=== PATIENT | male | born 1955 | race Caucasian/White ===

== ENCOUNTER 2016-12-23 13:46 | Emergency (ER) | payer BC, MEDICARE ==
[~2016-12-23] VITALS: Ht 182.9 cm; Wt 90.7 kg
[~2016-12-23 13:46] MED LIST: AMLO10TA2 PO; AMOX500C2 PO; ASPI-983 PO; ATEN100T PO; ATOR10TA66 PO; CITA20TA7 PO; DOXY100T2 PO; FLUT50DI IH; GABA-488 PO; INSU100I14 SQ; INSU100I23 SQ; INSU100V5 SQ; LISI40TA PO; METF1000 PO; PRD20T PO; RANI150T11 PO; RT-ALBUINH IH
--- NOTE | 2016-12-23 15:04 | Diagnostic Imaging Report ---
PA and lateral views of the chest. INDICATION: Cough. FINDINGS: There is mild prominence of the interstitial markings. Minimal atelectasis in the right lung base is also seen. There is no effusion or pneumothorax. The heart size is normal. The mediastinum and tommy appear unremarkable. IMPRESSION: There is prominence of interstitial markings which could relate to minimal vascular congestion. A viral or atypical infection could be considered. Dictated by: Dictated on workstation # [id number]
[2016-12-23 15:08] LABS: BASOPHILS # (AUTO) 0.1 10^3/uL (0.0-0.1); BASOPHILS % (AUTO) 2 % (0-10); EOSINOPHILS # (AUTO) 0.4 10^3/uL (0.0-0.3); EOSINOPHILS % (AUTO) 6 % (0-10); LYMPHOCYTES # (AUTO) 0.8 X 10^3 (1.0-4.0); LYMPHOCYTES % (AUTO) 14 % (12-44); MEAN CORPUSCULAR HEMOGLOBIN 30 PG (25-34); MEAN CORPUSCULAR HGB CONC 33 G/DL (32-36); MEAN CORPUSCULAR VOLUME 91 FL (80-99); MEAN PLATELET VOLUME 10.5 FL (7.4-10.4); MONOCYTES # (AUTO) 0.7 X 10^3 (0.0-1.0); MONOCYTES % (AUTO) 12 % (0-12); NEUTROPHILS # (AUTO) 3.8 X 10^3 (1.8-7.8); NEUTROPHILS % (AUTO) 66 % (42-75); PLATELET COUNT 214 10^3/uL (130-400); RED BLOOD COUNT 4.63 10^6/uL (4.35-5.85); RED CELL DISTRIBUTION WIDTH 13.8 % (10.0-14.5); WHITE BLOOD COUNT 5.7 10^3/uL (4.3-11.0)
[2016-12-23 15:18] LABS: INR 0.9 (0.8-1.4); PROTHROMBIN TIME PATIENT 11.8 SEC (12.2-14.7)
[2016-12-23 15:29] LABS: ALANINE AMINOTRANSFERASE 12 U/L (0-55); ALBUMIN 4.6 G/DL (3.2-4.5); ANION GAP 11 MMOL/L (5-14); ASPARTATE AMINO TRANSFERASE 16 U/L (5-34); BILIRUBIN,TOTAL 0.5 MG/DL (0.1-1.0); BLOOD UREA NITROGEN 27 MG/DL (7-18); BUN/CREATININE RATIO 18; CALCIUM 9.8 MG/DL (8.5-10.1); CARBON DIOXIDE 26 MMOL/L (21-32); CHLORIDE 101 MMOL/L (98-107); CREATININE SERUM 1.49 MG/DL (0.60-1.30); GFR ESTIMATED 48; GLUCOSE 147 MG/DL (70-105); MAGNESIUM 1.8 MG/DL (1.8-2.4); POTASSIUM 4.9 MMOL/L (3.6-5.0); SODIUM 138 MMOL/L (135-145); TOTAL PROTEIN 7.1 G/DL (6.4-8.2)
[2016-12-23 15:30] LABS: ALCOHOL < 10 MG/DL (<10)
--- NOTE | 2016-12-23 15:49 | ED General ---
General Chief Complaint: Cough/Cold/Flu Symptoms Stated Complaint: FEVER, SORE THROAT Nursing Triage Note: c/o hoarse voice, occasional cough, and exertional SOA. Reports having to sleep in upright position at night. Hx of right sided CVA 2012 Nursing Sepsis Screen: No Definite Risk Source of Information: Patient, Old Records Exam Limitations: No Limitations History of Present Illness Time Seen by Provider: 14:07 Initial Comments This 61-year-old gentleman presents to emergency room with complaints of sore throat and difficulty breathing, especially at night. He was started on Lasix in November for pulmonary edema. He reports having fever recently but none today. He does have cough. He had similar problems about a year ago for which she was admitted and had a thorough workup including swallow study and CT scans. He reports a history of frequent alcohol use until about one month ago. He does not drink every day. He does have a history of congestive heart failure, neuropathy, stroke with right-sided weakness, and insulin-dependent diabetes. His primary care providers Dr. Estrada in [place]. Allergies and Home Medications Allergies Coded Allergies: benzocaine (Verified Allergy, Severe, 11/26/15) Sulfa (Sulfonamide Antibiotics) (Verified Allergy, Unknown, 11/25/15) Home Medications Albuterol Sulfate 18 Gm Hfa.aer.ad #1 2 PUFF IH Q4H PRN PRN SHORTNESS OF BREATH Prescribed by: CAIN MAYER on 11/28/15 0613 Albuterol Sulfate 6.7 Gm Hfa.aer.ad #1 1-4 PUFF IH Q4H PRN PRN SHORTNESS OF BREATH Prescribed by: WILLIAM MCKINNEY on 12/23/16 1731 Amlodipine Besylate 10 Mg Tablet 10 MG PO DAILY (Reported) Aspirin 81 Mg Tablet.dr 81 MG PO DAILY (Reported) Atenolol 100 Mg Tablet 100 MG PO DAILY (Reported) Atorvastatin Calcium 10 Mg Tablet 10 MG PO HS (Reported) Citalopram Hydrobromide 20 Mg Tablet 20 MG PO DAILY (Reported) Doxycycline Hyclate 100 Mg Tablet #20 100 MG PO BID Prescribed by: CHEMO AGUIRRE on 12/02/15 1107 Fluticasone Propionate 1 Disk Inhp #1 2 DISK IH BID Prescribed by: CAIN MAYER on 11/28/15 0612 Furosemide 20 Mg Tablet #30 20 MG PO BID Take one at breakfast time and one after lunch Prescribed by: WILLIAM MCKINNEY on 12/23/161716 Gabapentin 300 Mg Capsule 300 MG PO TID (Reported) Insulin Aspart 300 Units/3 Ml Solution 8-12 UNITS SQ TID (Reported) WITH MEALS / HAS NOT BEEN USING Insulin Determir 1,000 Units/10 Ml Soln #1 25 UNIT SQ DAILY@0900 Prescribed by: CHEMO AGUIRRE on 12/02/15 105 Insulin Determir 1,000 Units/10 Ml Soln #1 50 UNIT SQ HS Prescribed by: CHEMO AGUIRRE on 12/02/15 1057 Insulin Lispro 100 Unit/1 Ml Insuln.pen #1 17 UNIT SQ AC Prescribed by: CHEMO AGUIRRE on 12/02/15 105 Lisinopril 40 Mg Tablet 40 MG PO DAILY (Reported) Metformin HCl 1,000 Mg Tablet 1,000 MG PO BID (Reported) Potassium Chloride 10 Meq Capsule.er #14 10 MEQ PO DAILY Prescribed by: WILLIAM MCKINNEY on 12/23/161716 Prednisone 20 Mg Tab #20 20 MG PO UD Prescribed by: CHEMO AGUIRRE on 12/02/15 1107 Ranitidine HCl 150 Mg Tablet 150 MG PO BID (Reported) Constitutional: no symptoms reported EENTM: see HPI Respiratory: see HPI Cardiovascular: no symptoms reported Gastrointestinal: no symptoms reported Genitourinary: no symptoms reported Musculoskeletal: no symptoms reported Skin: no symptoms reported Psychiatric/Neurological: See HPI Hematologic/Lymphatic: No Symptoms Reported Past Kccgtfv-Tzzktk-Uukiye Hx Patient Social History Alcohol Use: Occasionally Uses Recreational Drug Use: No Smoking Status: Never a Smoker Recent Foreign Travel: No Contact w/Someone Who Travel: No Recent Infectious Disease Expo: No Recent Hopitalizations: No Immunizations Up To Date Date of Pneumonia Vaccine: Nov 26, 2015 Date of Influenza Vaccine: Nov 26, 2015 Surgeries HX Surgeries: Yes Surgeries: Abdominal (Whipple??), Bowel Surgery, Gallbladder Respiratory Hx Respiratory Disorders: No Cardiovascular Hx Cardiac Disorders: Yes (CHF) Cardiac Disorders: Hypertension Neurological Hx Neurological Disorders: Yes Neurological Disorders: Neuropathy, Stroke (right-sided weakness) Reproductive System Hx Reproductive Disorders: No Sexually Transmitted Disease: No HIV/AIDS: No Genitourinary Hx Genitourinary Disorders: No Gastrointestinal Hx Gastrointestinal Disorders: Yes Gastrointestinal Disorders: Pancreatitis Musculoskeletal Hx Musculoskeletal Disorders: Yes (WEAKNESS FROM STROKE) Endocrine Hx Endocrine Disorders: Yes Endocrine Disorders: Diabetes, Insulin dep HEENT HX ENT Disorders: No Cancer Hx Cancer: No Psychosocial Hx Psychiatric Problems: Yes (alcohol abuse) Integumentary HX Skin/Integumentary Disorder: No Blood Transfusions Hx Blood Disorders: No Adverse Reaction to a Blood Tr: No Family Medical History Family Medial History: Alcoholism Diabetes mellitus Hypertension Physical Exam Vital Signs Vital Sign - Last 12Hours 12/23/16 14:16 Temp 98.1 Pulse 82 Resp 18 B/P 130/97 Pulse Ox 96 O2 Delivery Room Air Capillary Refill : Less Than 3 Seconds General Appearance: No Apparent Distress WD/WN HEENT: PERRL/EOMI Normal ENT Inspection Neck: Normal Inspection Respiratory: Lungs Clear Normal Breath Sounds No Accessory Muscle Use No Respiratory Distress Cardiovascular: Regular Rate, Rhythm No Edema No Murmur Gastrointestinal: Non Tender Soft Extremity: Normal Inspection No Pedal Edema Neurologic/Psychiatric: Alert Oriented x3 No Motor/Sensory Deficits 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 He also had elevated BNP and some evidence of congestion on chest x- ray. We developed a plan to increase his Lasix use and then follow up with his primary care provider. See discharge instructions and prescriptions. Diagnostic Imaging Diagonstic Imaging: Xray Plain Films/CT/US/NM/MRI: chest Comments Chest x-ray viewed by me and report reviewed. See report below: NAME: MERARI GREENE [facility] REC#: [id number] PT STATUS: REG ER : 1955 PHYSICIAN: WILLIAM CARROLL MD ADMIT DATE: 12/23/16/ER Signed Date of Exam: 12/23/16 CHEST PA/LAT (2 VIEW) PA and lateral views of the chest. INDICATION: Cough. FINDINGS: There is mild prominence of the interstitial markings. Minimal atelectasis in the right lung base is also seen. There is no effusion or pneumothorax. The heart size is normal. The mediastinum and tommy appear unremarkable. IMPRESSION: There is prominence of interstitial markings which could relate to minimal vascular congestion. A viral or atypical infection could be considered. Dictated by: Dictated on workstation # [id number] Dict: 12/23/16 1458 Trans: 12/23/16 1541 KB [id number] Interpreted by: ESPERANZA STOREY MD Electronically signed by:ESPERANZA STOREY MD 12/23/16 1543 Departure Impression Impression: Primary Impression: Pulmonary congestion Additional Impressions: Bronchospasm Dyspnea Qualified Code: R06.00 - Dyspnea, unspecified Disposition: HOME, SELF-CARE Condition: Improved Departure-Patient Inst. Decision time for Depature: 17:00 Referrals: NO,LOCAL PHYSICIAN (PCP/Family) Primary Care Physician Patient Instructions: Furosemide Add. Discharge Instructions: Increase your Lasix (furosemide) to 20 mg twice daily. Take one dose in the morning and one dose after lunch. Add potassium as prescribed. Follow-up with your primary care provider early next week. Use your inhaler as prescribed when short of breath. You may take 1-4 puffs every 4 hours as needed. Return to the emergency room if symptoms worsen. Please follow-up with your primary care provider regarding your throat issues. You did have some abnormalities on your swallow study and CT a year ago. This should be followed by your primary care provider. All discharge instructions reviewed with patient and/or family. Voiced understanding. Scripts Albuterol Sulfate (Proventil Hfa)6.7 Gm Hfa.aer.ad1-4 Puff IH Q4H PRN SHORTNESS OF BREATH #1 EACH Prov:WILLIAM CARROLL MD 12/23/16 Potassium Chloride 10 Meq Capsule.er10 Meq PO DAILY #14 CAP Prov:WILLIAM CARROLL MD 12/23/16 Furosemide (Lasix)20 Mg [id number] Mg PO BID #30 TAB Take one at breakfast time and one after lunch Prov:WILLIAM CARROLL MD 12/23/16 WILLIAM CARROLL MD Dec 23, 2016 15:49 Albuterol/ Ipratropium 3 ml STK-MED ONCE .ROUTE 12/23/16 16:39 12/23/16 16:41 DC 12/23/16 16:50 3 ML Vital Signs/I&O Vital Sign - Last 12Hours 12/23/16 12/23/16 14:16 16:41 Temp 98.1 Pulse 82 Resp 18 B/P 130/97 Pulse Ox 96 94 O2 Delivery Room Air Blood Pressure Mean: 108 Diagnostic Imaging Diagonstic Imaging: Xray Plain Films/CT/US/NM/MRI: chest Comments Chest x-ray viewed by me and report reviewed. See report below: NAME: MERARI GREENE [facility] REC#: [id number] PT STATUS: REG ER : 1955 PHYSICIAN: WILLIAM CARROLL MD ADMIT DATE: 12/23/16/ER Signed Date of Exam: 12/23/16 CHEST PA/LAT (2 VIEW) PA and lateral views of the chest. INDICATION: Cough. FINDINGS: There is mild prominence of the interstitial markings. Minimal atelectasis in the right lung base is also seen. There is no effusion or pneumothorax. The heart size is normal. The mediastinum and tommy appear unremarkable. IMPRESSION: There is prominence of interstitial markings which could relate to minimal vascular congestion. A viral or atypical infection could be considered. Dictated by: Dictated on workstation # [id number] Dict: 12/23/16 1458 Trans: 12/23/16 1541 KB [id number] Interpreted by: ESPERANZA STOREY MD Electronically signed by:ESPERANZA STOREY MD 12/23/16 1544 Departure Impression Impression: Primary Impression: Pulmonary congestion Additional Impressions: Bronchospasm Dyspnea Qualified Code: R06.00 - Dyspnea, unspecified Disposition: 01 HOME, SELF-CARE Condition: Improved Departure-Patient Inst. Decision time for Depature: 17:00 Referrals: NO,LOCAL PHYSICIAN (PCP/Family) Primary Care Physician Patient Instructions: Furosemide Add. Discharge Instructions: Increase your Lasix (furosemide) to 20 mg twice daily. Take one dose in the morning and one dose after lunch. Add potassium as prescribed. Follow-up with your primary care provider early next week. Use your inhaler as prescribed when short of breath. You may take 1-4 puffs every 4 hours as needed. Return to the emergency room if symptoms worsen. Please follow-up with your primary care provider regarding your throat issues. You did have some abnormalities on your swallow study and CT a year ago. This should be followed by your primary care provider. All discharge instructions reviewed with patient and/or family. Voiced understanding. Scripts Albuterol Sulfate (Proventil Hfa)6.7 Gm Hfa.aer.ad1-4 Puff IH Q4H PRN SHORTNESS OF BREATH #1 EACH Prov:WILLIAM CARROLL MD 12/23/16 Potassium Chloride 10 Meq Capsule.er10 Meq PO DAILY #14 CAP Prov:WILLIAM CARROLL MD 12/23/16 Furosemide (Lasix)20 Mg [id number] Mg PO BID #30 TAB Take one at breakfast time and one after lunch Prov:WILLIAM CARROLL MD 12/23/16 WILLIAM CARROLL MD Dec 23, 2016 15:49
[2016-12-23] MEDS ORDERED: RT-ALBUTEROL/IPRATROPIUM 3 ML (DUONEB) VIAL INH ONE (16:30)
[2016-12-23] MEDS ORDERED: RT-ALBUTEROL/IPRATROPIUM 3 ML (DUONEB) VIAL ONE (16:39)
[2016-12-23] MEDS ORDERED: POTA10CA43 PO (17:17)
[2016-12-23] MEDS ORDERED: FURO-125 PO (17:17)
[2016-12-23] MEDS ORDERED: RT-ALBUINH IH (17:31)
[2016-12-23 17:42] VITALS: BP 128/92
== END 2016-12-23 17:42 | disposition home or self-care (01) ==
LOC: EDUNIT# 13:46 → ER 13:49
DX: J81.0 Acute pulmonary edema (principal); J98.01 Acute bronchospasm; R06.00 Dyspnea, unspecified; J02.9 Acute pharyngitis, unspecified; E11.9 Type 2 diabetes mellitus without complications; Z79.82 Long term (current) use of aspirin; Z79.899 Other long term (current) drug therapy; Z79.84 Long term (current) use of oral hypoglycemic drugs
CPT/HCPCS: 36415; 71020; 80053; 80320; 83735; 83880; 85025; 85610; 94640